=== PATIENT | female | born 1955 | race Caucasian/White ===

== ENCOUNTER → 2018-08-24 | Outpatient (CLI) | payer BC ==
[2012-05-14 11:21] VITALS: BP 118/75
[~2018-08-24] MED LIST: BLOOD PRESSURE
== END ==
LOC: MAMMO 14:57
DX: Z12.31 Encounter for screening mammogram for malignant neoplasm of breast (principal)

== ENCOUNTER 2020-09-12 14:30 | Outpatient (RCR) | payer MEDICARE, BC ==
[2012-05-14 11:21] VITALS: BP 118/75
== END 2020-09-16 | disposition home or self-care (01) ==
LOC: PT
DX: M25.511 Pain in right shoulder (principal); M25.512 Pain in left shoulder

== ENCOUNTER 2020-09-17 14:21 | Outpatient (RCR) | payer MEDICARE, BC ==
[2012-05-14 11:21] VITALS: BP 118/75
== END 2020-09-19 15:30 | disposition home or self-care (01) ==
LOC: PT 14:21
DX: M25.511 Pain in right shoulder (principal); M25.512 Pain in left shoulder

== ENCOUNTER 2023-12-08 16:35 | Emergency (ER) | payer MEDICARE ==
[~2023-12-08] VITALS: Ht 157.5 cm; Wt 56.4 kg
[2023-12-08] MEDS ORDERED: LISINOPRIL10 MG PO (16:54)
[2023-12-08] MEDS ORDERED: CELEXA 20MG20 MG/TA1 PO (16:54)
[2023-12-08 17:26] LABS: BASO # 0.02 K/mm3 (0.02-0.10); EOS # 0.05 K/mm3 (0.04-0.40); EOS % 0.8 % (1.0-5.0); HEMATOCRIT 40.5 % (37.0-47.0); HEMOGLOBIN 13.2 g/dL (12.5-16.0); LYMPH# 2.22 K/mm3 (1.50-4.00); MEAN CELL VOLUME 94 fl (78-100); MEAN CORPUSCULAR HEMOGLOBIN 31 pg (27-31); MEAN CORPUSCULAR HGB CONC 33 g/dL (33-37); MEAN PLATELET VOLUME 9.2 fl (7.4-10.4); MONO # 0.47 K/mm3 (0.20-0.80); NEU # 3.27 K/mm3 (1.40-6.50); PLATELET COUNT 323 K/mm3 (130-400); RED BLOOD COUNT 4.31 M/mm3 (4.10-5.30)
[2023-12-08] MEDS ORDERED: NS 1,000 ML IV SCH (17:30)
[2023-12-08] MEDS ORDERED: Metoprolol Tartrate 1 MG/ML 5 ML VIAL IV SCH (17:30)
[2023-12-08 17:31] LABS: CALCIUM 9.7 mg/dL (8.3-10.5)
[2023-12-08 17:33] LABS: CARBON DIOXIDE 21 mmol/L (23-31)
[2023-12-08 17:34] LABS: TOTAL BILIRUBIN 0.5 mg/dL (0.2-1.2)
[2023-12-08 17:36] LABS: ALBUMIN 3.8 g/dL (3.4-4.8)
[2023-12-08 17:37] LABS: AST-SGOT 20 U/L (5-34); SODIUM 140 mmol/L (136-145)
[2023-12-08 17:39] LABS: ALT/SGPT 15 U/L (0-55); GLUCOSE 92 mg/dL (65-105); TOTAL PROTEIN 7.4 g/dL (6.2-8.1)
[2023-12-08 17:45] LABS: TROPONIN-I < 0.030 ng/mL (0.00-0.033)
[2023-12-08] MEDS ORDERED: METOPROLOL SUCC25 M1 PO (19:24)
[2023-12-08] MEDS ORDERED: ELIQUIS2.5 MG PO (19:24)
[2023-12-08] MEDS ORDERED: Apixaban 5 MG TAB PO ONE (19:30)
[2023-12-08 21:37] VITALS: BP 129/106
== END 2023-12-08 20:31 | disposition home or self-care (01) ==
LOC: ED 16:35
PROVIDERS: Nurse Practitioner
DX: I48.91 Unspecified atrial fibrillation (principal)
CPT/HCPCS: J7030

== ENCOUNTER → 2024-02-09 | Outpatient (CLI) | payer MEDICARE ==
[~2024-02-09] MED LIST changes: +CELEXA 20MG20 MG/TA1 PO; +ELIQUIS2.5 MG PO; +LISINOPRIL10 MG PO; +METOPROLOL SUCC25 M1 PO
[2024-04-20 14:39] LABS: ALBUMIN 3.9 g/dL (3.4-4.8); CALCIUM 9.5 mg/dL (8.3-10.5); TOTAL BILIRUBIN 0.4 mg/dL (0.2-1.2); TOTAL PROTEIN 7.8 g/dL (6.2-8.1)
[2024-04-20 14:40] LABS: HEMOGLOBIN 12.6 g/dL (12.5-16.0); MEAN PLATELET VOLUME 8.6 fl (7.4-10.4); RED BLOOD COUNT 4.13 M/mm3 (4.10-5.30); RED CELL DISTRIBUTION WIDTH 12.6 % (11.5-14.5)
== END ==
LOC: LAB 11:20
PROVIDERS: Family Medicine
DX: I10 Essential (primary) hypertension (principal); R42 Dizziness and giddiness

== ENCOUNTER → 2024-05-18 | Outpatient (CLI) | payer MEDICARE | LOC: LAB 10:32 | PROVIDERS: Family Medicine | DX: I10 Essential (primary) hypertension (principal) ==

== ENCOUNTER → 2024-07-28 | Outpatient (CLI) | payer MEDICARE ==
[2024-07-31 15:25] LABS: BASO # 0.02 K/mm3 (0.02-0.10); CALCIUM 9.3 mg/dL (8.3-10.5); CARBON DIOXIDE 23 mmol/L (23-31); GLUCOSE 116 mg/dL (65-105); HEMATOCRIT 40.6 % (37.0-47.0); HEMOGLOBIN 13.2 g/dL (12.5-16.0); LYMPH# 1.05 K/mm3 (1.50-4.00); MEAN CELL VOLUME 93 fl (78-100); MEAN CORPUSCULAR HEMOGLOBIN 30 pg (27-31); MEAN CORPUSCULAR HGB CONC 33 g/dL (33-37); MEAN PLATELET VOLUME 9.3 fl (7.4-10.4); NEU # 3.66 K/mm3 (1.40-6.50); PLATELET COUNT 271 K/mm3 (130-400); RED BLOOD COUNT 4.38 M/mm3 (4.10-5.30); RED CELL DISTRIBUTION WIDTH 12.2 % (11.5-14.5); SODIUM 134 mmol/L (136-145); TROPONIN-I < 0.030 ng/mL (0.00-0.033); WHITE BLOOD COUNT 5.4 K/mm3 (4.8-10.8)
== END ==
LOC: RAD 11:15 → LAB 11:15
PROVIDERS: Nurse Practitioner Family
DX: R07.89 Other chest pain (principal); I10 Essential (primary) hypertension; E11.29 Type 2 diabetes mellitus with other diabetic kidney complication; E11.65 Type 2 diabetes mellitus with hyperglycemia